=== PATIENT | male | born 1995 | race African-American/Black ===

== ENCOUNTER 2018-06-10 19:24 | Emergency (ER) | payer MEDICAID ==
[~2018-06-10] VITALS: Ht 193 cm; Wt 78.9 kg
--- NOTE | 2018-06-10 19:24 | NUR ---
[facility], PREBOOK. TAKEN TO BED 1
--- NOTE | 2018-06-10 19:25 | NUR ---
22Y/M BIBA C/O RIGHT SHOULDER PAIN; + REDNESS AND SWELLING, + ABRASION, 9/10 PAIN SCALE; BED DOWN; BEDRAIL UP X 1; ER MD AWARE AND NOTIFIED OF PT STATUS. HX; ASTHMA RX; DENIES
[2018-06-10 19:28] VITALS: BP 139/78
--- NOTE | 2018-06-11 00:01 | NUR ---
Dr. Johns evaluating patient at bedside.
--- NOTE | 2018-06-11 00:08 | NUR ---
PT MOVED TO CHAIR E
[2018-06-11 00:15] VITALS: BP 134/81
--- NOTE | 2018-06-11 00:15 | NUR ---
Patient discharged with v/s stable. Written and verbal after care instructions given and explained. Patient alert, oriented and verbalized understanding of instructions. Ambulatory with steady gait. All questions addressed prior to discharge. ID band removed. Patient advised to follow up with PMD. Opportunity to ask questions provided and answered.
== END 2018-06-11 00:15 ==
LOC: MED 19:24
DX: S43.401A Unspecified sprain of right shoulder joint, initial encounter (principal); J45.909 Unspecified asthma, uncomplicated; Y04.0XXA Assault by unarmed brawl or fight, initial encounter; Y93.89 Activity, other specified; Y92.89 Other specified places as the place of occurrence of the external cause; Y99.8 Other external cause status
CPT/HCPCS: 73030; 99284; Q0092